=== PATIENT | male | born 2000 | race Hispanic/Latino ===

== ENCOUNTER 2024-06-30 13:36 | Emergency (ER) | payer OTHER ==
[~2024-06-30] VITALS: Ht 172.7 cm; Wt 82.5 kg
[2024-06-30 15:12] LABS: Trichomonas vaginalis (AMP) NOT DETECTED (NEGATIVE)
[2024-06-30 15:37] LABS: GC DNA AMPLIFICATION NEGATIVE (NEGATIVE)
[2024-06-30 15:48] VITALS: BP 130/79; TEMP 98.5; O2SAT 97
== END 2024-06-30 15:48 | disposition home or self-care (01) ==
LOC: M ED 13:36
DX: Z20.2 Contact with and (suspected) exposure to infections with a predominantly sexual mode of transmission (principal); Z91.013 Allergy to seafood

== ENCOUNTER 2024-07-10 06:06 | Inpatient (IN) | payer OTHER ==
[~2024-07-10] VITALS: Ht 172.7 cm; Wt 81.1 kg
[2024-07-10] MEDS ORDERED: AMPICILLIN SOD/SULBACTAM SOD 3 GM in DEXTROSE 5% (D5W) ADV/MINI-BAG 50 ML IV ONE (07:25)
[2024-07-10] MEDS: dexAMETHasone 20MG/5ML VIAL IV ONE (07:42)
[2024-07-10] MEDS: KETOROLAC 30 MG/ML 1ML VIAL IV ONE (07:42)
[2024-07-10 07:54] LABS: BASO # 0.1 10^3/uL (0.0-0.2); BASO % 0.4 % (0.0-1.0); EOS # 0.1 10^3/uL (0.0-0.5); EOS % 0.9 % (0.0-3.0); HEMOGLOBIN 15.5 g/dl (13.5-17.5); LYMPH # 1.9 10^3/uL (1.5-5.0); LYMPH % 12.8 % (24.0-44.0); MEAN CORPUSCULAR HEMOGLOBIN 28.7 pg (27.0-33.0); MONO # 1.1 10^3/uL (0.0-0.8); MONO % 7.8 % (2.0-8.0); NEUTROPHILS # 11.3 10^3/uL (1.5-8.5); NEUTROPHILS % 77.7 % (36.0-66.0); PLATELET COUNT, AUTOMATED 219 10^3/uL (150-450); WHITE BLOOD COUNT 14.5 10^3/uL (4.0-10.0)
[2024-07-10] MEDS: AMPICILLIN SOD/SULBACTAM SOD 3 GM in SODIUM CHLORIDE 0.9% 100ML ADD 100 ML IV ONE (08:03)
[2024-07-10 08:19] LABS: BLOOD UREA NITROGEN 11 MG/DL (9-23); CALCIUM LEVEL 9.5 MG/DL (8.5-10.1); CARBON DIOXIDE LEVEL 28 MMOL/L (20-31); CHLORIDE LEVEL 107 MMOL/L (98-107); CREATININE FOR GFR 0.86 MG/DL (0.70-1.30); GLOMERULAR FILTRATION RATE > 60.0 (>60); GLUCOSE, FASTING 92 MG/DL (60-100); SODIUM LEVEL 140 MMOL/L (136-145)
[2024-07-10] MEDS ORDERED: ISOVUE-370 76% 100ML VIAL As Ordered ONE (08:31)
[2024-07-10] MEDS ORDERED: HOME MED LIST COMPLETE! XX SCH (11:40)
[2024-07-10] MEDS: NS 1,000 ML IV ONE (11:54)
[2024-07-10] MEDS ORDERED: ACETAMINOPHEN 325 MG TAB PO PRN (12:20)
[2024-07-10] MEDS ORDERED: MOM 30ML SUSPENSION UDC PO PRN (12:20)
[2024-07-10] MEDS: LR 1,000 ML IV SCH (13:00)
[2024-07-10] MEDS ORDERED: KETOROLAC 30 MG/ML 1ML VIAL IV PRN ×2 (14:00)
[2024-07-10] MEDS: AMPICILLIN SOD/SULBACTAM SOD 3 GM in SODIUM CHLORIDE 0.9% 100ML ADD 100 ML IV SCH (14:27)
[2024-07-10 18:59] VITALS: BP 135/84; TEMP 98.7; O2SAT 97
[2024-07-10 19:25] VITALS: BP 131/82; TEMP 98.2; O2SAT 97
[2024-07-10 20:30] VITALS: BP 129/74; TEMP 98.4; O2SAT 97
[2024-07-10 21:30] VITALS: BP 129/64; TEMP 98.6; O2SAT 97
[2024-07-10 22:30] VITALS: BP 115/64; TEMP 99.1; O2SAT 95
[2024-07-10 23:30] VITALS: BP 134/72; TEMP 98.2; O2SAT 93
[2024-07-11 03:30] VITALS: BP 125/66; TEMP 97.6; O2SAT 96
[2024-07-11 07:02] LABS: HEMATOCRIT 42.8 % (42.0-52.0); HEMOGLOBIN 14.4 g/dl (13.5-17.5); MEAN CORPUSCULAR HEMOGLOBIN 28.9 pg (27.0-33.0); MEAN CORPUSCULAR HGB CONC 33.6 g/dl (32.0-36.5); MEAN CORPUSCULAR VOLUME 85.8 fl (80.0-96.0); PLATELET COUNT, AUTOMATED 237 10^3/uL (150-450); RED BLOOD COUNT 4.99 10^6/uL (4.30-6.10); WHITE BLOOD COUNT 18.5 10^3/uL (4.0-10.0)
[2024-07-11 07:16] VITALS: BP 132/65; TEMP 97.8; O2SAT 95
[2024-07-11 07:27] LABS: BLOOD UREA NITROGEN 14 MG/DL (9-23); CALCIUM LEVEL 9.3 MG/DL (8.5-10.1); CARBON DIOXIDE LEVEL 27 MMOL/L (20-31); CHLORIDE LEVEL 106 MMOL/L (98-107); CREATININE FOR GFR 0.74 MG/DL (0.70-1.30); GLOMERULAR FILTRATION RATE > 60.0 (>60); GLUCOSE, FASTING 121 MG/DL (60-100); POTASSIUM SERUM 4.1 MMOL/L (3.5-5.1); SODIUM LEVEL 140 MMOL/L (136-145)
[2024-07-11] MEDS: AUGMENTIN 875 MG TAB PO SCH (08:11)
[2024-07-11] MEDS ORDERED: IBUP-1114 PO (10:29)
[2024-07-11] MEDS ORDERED: AMOX875T2 PO (10:29)
== END 2024-07-11 11:20 | disposition home or self-care (01) | DRG 145 ==
LOC: M ED 06:06 → M ED INP 12:20 → M MS4PR 18:55
PROVIDERS: ADMIT Student in an Organized Health Care Education/Training Program; ATTEND Student in an Organized Health Care Education/Training Program
PROC: 0C9P0ZZ Drainage of Tonsils, Open Approach (ICD-10-PCS; principal; 2024-07-10 16:00)
DX: J36 Peritonsillar abscess (principal); Z91.013 Allergy to seafood

== ENCOUNTER → 2024-07-10 | Day surgery (SDC) | payer OTHER ==
[~2024-07-10] MED LIST: AMOX875T2 PO; CLINDAMYCIN 900MG/50ML PREMIX BAG As Ordered ONE; IBUP-1114 PO; LIDOCAINE 2% 100MG/5ML SDV (FOR ANES.) As Ordered ONE; LIDOCAINE W/EPINEPHRINE 1% 20ML VIAL As Ordered ONE; MIDAZOLAM INJ 2MG/2ML VIAL As Ordered ONE; ONDANSETRON 4MG 2ML VIAL As Ordered ONE; ROCURONIUM BROMIDE 50MG/5ML VIAL As Ordered ONE; SUGAMMADEX SODIUM 500 MG/5 ML VIAL (BRIDION) As Ordered ONE; fentaNYL 100 MCG/2 ML INJECTION As Ordered ONE; propofoL 200 MG/20 ML VIAL As Ordered ONE
== END | disposition home or self-care (01) ==
LOC: M SDC 15:47
PROVIDERS: ATTEND Otolaryngology
DX: J36 Peritonsillar abscess (principal); Z53.29 Procedure and treatment not carried out because of patient's decision for other reasons